=== PATIENT | female | born 2000 | race Caucasian/White ===

== ENCOUNTER 2020-03-03 22:34 | Emergency (ER) | payer OTHER ==
[~2020-03-03] VITALS: Ht 165.1 cm; Wt 95.5 kg
[2020-03-03 22:42] VITALS: TEMP 98.2
[2020-03-03] MEDS ORDERED: EFFEXOR 3737.5 MG/TA PO (22:45)
[2020-03-03] MEDS ORDERED: EFFEXOR 75M75 MG/TAB PO (22:45)
[2020-03-03] MEDS ORDERED: AMITRIPTYLINE H25 M1 PO (22:49)
[2020-03-03 23:54] LABS: COLLECTION METHOD CLEAN CATCH
[2020-03-04 00:01] LABS: MUCOUS Present /lpf; PH 7 (5-8); SQUAMOUS EPITHELIAL 0-2 /hpf; URINE APPEARANCE Clear; URINE BACTERIA None Seen /hpf; URINE BILIRUBIN Negative (NEGATIVE); URINE BLOOD 3+ (NEGATIVE); URINE COLOR Straw; URINE GLUCOSE Negative (NEGATIVE); URINE KETONE Negative (NEGATIVE); URINE LEUKOCYTE ESTERASE 2+ (NEGATIVE); URINE NITRATE Negative (NEGATIVE); URINE PROTEIN(semi-quant) Negative (NEGATIVE); URINE UROBILINOGEN Negative (NEGATIVE)
[2020-03-04 00:13] LABS: HEMATOCRIT 39.5 % (35.0-45.0); HEMOGLOBIN 13.4 g/dl (12.0-15.0); MEAN CELL VOLUME 87 fl (80.0-95.0); MEAN CORPUSCULAR HEMOGLOBIN 30 pg (26.0-32.0); MEAN CORPUSCULAR HGB CONC 34 g/dl (33.0-37.0); MEAN PLATELET VOLUME 9.3 fl (7.4-10.4); PLATELET COUNT 280 K/mm3 (130-400); RED BLOOD COUNT 4.52 M/mm3 (4.10-5.30); REDCELL DISTRIBUTION WIDTH-CV 12.5 % (11.5-14.5)
[2020-03-04 00:21] LABS: ALBUMIN 4.1 gm/dL (3.5-5.0); BILIRUBIN,TOTAL 0.3 mg/dL (0.0-1.0); C-REACTIVE PROTEIN 0.6 mg/dL (0.0-0.9); CREATININE, serum 0.59 (0.52-1.25); POTASSIUM 3.9 mmol/L (3.4-5.0); TOTAL PROTEIN 7.9 gm/dL (6.4-8.2)
[2020-03-04] MEDS ORDERED: CEFTIN 250250 MG/TAB PO (00:43)
[2020-03-04 00:46] VITALS: BP 113/84; PULSE 84
[2020-03-04 01:14] LABS: BAND 1 % (0-10); LYMPHOCYTE 31 % (20.0-51.0); MYELOCYTE 1 % (0-0); NEUTROPHILS 56 % (42.0-75.2); PLATELET ESTIMATE NORMAL (NORMAL)
== END 2020-03-04 00:56 | disposition home or self-care (01) ==
LOC: COL.ER 22:34
PROVIDERS: Nurse Practitioner
DX: N39.0 Urinary tract infection, site not specified (principal); F32.9 Major depressive disorder, single episode, unspecified; R11.0 Nausea; R42 Dizziness and giddiness; Z32.02 Encounter for pregnancy test, result negative
CPT/HCPCS: J1885; J2270; J7030

== ENCOUNTER 2020-03-04 16:30 | Outpatient (RCR) | payer OTHER ==
[~2020-03-04] VITALS: Ht 165.1 cm; Wt 90.9 kg
[~2020-03-04 16:30] MED LIST: AMITRIPTYLINE H25 M1 PO; CEFTIN 250250 MG/TAB PO; EFFEXOR 3737.5 MG/TA PO; EFFEXOR 75M75 MG/TAB PO
[2020-03-04 16:48] VITALS: BP 128/94; PULSE 68; TEMP 98
== END 2020-06-02 | disposition home or self-care (01) ==
LOC: COL.ER
DX: Z20.3 Contact with and (suspected) exposure to rabies (principal); Z23 Encounter for immunization
CPT/HCPCS: J0696